=== PATIENT | male | born 1970 | race Caucasian/White ===

== ENCOUNTER 2016-07-08 05:54 | Emergency (ER) | payer OTHER ==
[2016-07-08] MEDS ORDERED: ASPIRIN 81 MG TABLET, CHEWABLE PO ONE (06:02)
[2016-07-08 06:59] LABS: ABSOLUTE EOSINOPHILS # (AUTO) 0.2 10^3/uL (0.0-0.6); ABSOLUTE LYMPHOCYTES (AUTO) 1.1 10^3/uL (0.5-4.7); ABSOLUTE MONOCYTES (AUTO) 0.7 10^3/uL (0.1-1.4); ABSOLUTE NEUT (AUTO) 7.6 10^3/uL (1.7-8.2); BASOPHILS % (AUTO) 0.5 % (0-2); EOSINOPHILS % (AUTO) 1.8 % (0-6); HEMATOCRIT 44.4 % (37.9-51.0); HEMOGLOBIN 14.7 g/dL (13.5-17.0); HGB HCT DIFFERENCE -0.3; LYMPHOCYTES % (AUTO) 11.4 % (13-45); MEAN CORPUSCULAR HEMOGLOBIN 28.1 pg (27.0-33.4); MEAN CORPUSCULAR VOLUME 85 fl (80-97); MONOCYTES % (AUTO) 7.2 % (3-13); RED BLOOD COUNT 5.21 10^6/uL (4.35-5.55); RED CELL DISTRIBUTION WIDTH 13.6 % (11.5-14.0); SEGMENTED NEUTROPHILS % (AUTO) 79.1 % (42-78); WHITE BLOOD COUNT 9.6 10^3/uL (4.0-10.5)
[2016-07-08 07:07] LABS: ALANINE AMINOTRANSFERASE 36 U/L (21-72); ALBUMIN 4.4 g/dL (3.5-5.0); ALKALINE PHOSPHATASE 58 U/L (38-126); ANION GAP 10 (5-19); ASPARTATE AMINO TRANSFERASE 25 U/L (17-59); BILIRUBIN,DIRECT 0.1 mg/dL (0.0-0.4); BILIRUBIN,TOTAL 0.6 mg/dL (0.2-1.3); BLOOD UREA NITROGEN 17 mg/dL (7-20); CALCIUM 9.8 mg/dL (8.4-10.2); CARBON DIOXIDE 30 mmol/L (22-30); CHLORIDE 102 mmol/L (98-107); CREATINE KINASE 89 U/L (55-170); CREATININE RESULT 0.82 mg/dL (0.52-1.25); GLUCOSE 94 mg/dL (75-110); POTASSIUM 4.4 mmol/L (3.6-5.0); SODIUM 141.9 mmol/L (137-145); TOTAL PROTEIN 7.4 g/dL (6.3-8.2)
[2016-07-08 07:19] LABS: CREATINE KINASE MB 0.58 ng/mL (<4.55)
[2016-07-08 07:29] LABS: TROPONIN I < 0.012 ng/mL
--- NOTE | 2016-07-08 08:08 | EKG REPORT ---
SEVERITY:- BORDERLINE ECG - SINUS RHYTHM NONSPECIFIC ST-T CHANGES- INFERIOR LEADS : Confirmed by: Alex Molina MD 08-Jul-2016 08:07:43
[2016-07-08] MEDS ORDERED: KETOROLAC TROMETHAMINE INJ/PF 30 MG/1 ML SDV IV ONE (09:31)
[2016-07-08] MEDS ORDERED: NORMAL SALINE 1000 ML 1,000 ML IV ONE (09:31)
[2016-07-08] MEDS ORDERED: ACETAMINOPHEN 325 MG TABLET PO ONE (09:33)
[2016-07-08] MEDS ORDERED: ONDANSETRON HCL INJ/PF 4 MG/2 ML SDV IV ONE (09:33)
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
[2016-07-08 11:33] VITALS: BP 122/81
== END 2016-07-08 11:41 | disposition home or self-care (01) ==
LOC: ER 05:54
DX: J06.9 Acute upper respiratory infection, unspecified (principal); B97.89 Other viral agents as the cause of diseases classified elsewhere; M54.2 Cervicalgia; R51 Headache; V49.60XA Unspecified car occupant injured in collision with unspecified motor vehicles in traffic accident, initial encounter; R07.89 Other chest pain; R68.83 Chills (without fever); H92.09 Otalgia, unspecified ear; R11.2 Nausea with vomiting, unspecified; J34.89 Other specified disorders of nose and nasal sinuses; R09.81 Nasal congestion; R07.1 Chest pain on breathing
CPT/HCPCS: 93005; 99285; 96361; 96374; 96375; 36415; 82553; 82550; 85025; 80053; 84484; 87804; 71010; 93010; J1885; J2405; J7030